=== PATIENT | male | born 1960 | race Caucasian/White ===

== ENCOUNTER 2018-11-20 12:01 | Emergency (ER) | payer BC ==
[2018-11-20] MEDS ORDERED: HYDROmorphone 2 MG/ML Syringe IVPUSH ONE (12:10)
[2018-11-20] MEDS ORDERED: Ondansetron 4 MG/2 ML SDV IVPUSH ONE (12:10)
--- NOTE | 2018-11-20 12:10 | EDM.PDOC ---
ED HPI GENERAL MEDICAL PROBLEM - General Chief Complaint: Trauma Stated Complaint: FALL Time Seen by Provider: 11/20/18 12:19 Source of Information: Reports: Patient, EMS History Limitations: Reports: No Limitations - History of Present Illness INITIAL COMMENTS - FREE TEXT/NARRATIVE: HISTORY AND PHYSICAL: Trauma Alert was called on this patient prior to Arrival. Dr Chavarria was directly involved in this patient's care. History of present illness: Patient is a 57-year-old male who presents to the emergency room after a traumatic injury. While at work he was climbing up scaffolding and there was an incline resulting in him slipping and falling approx 12-14 feet on to the ground. He did hit his head without loss of consciousness. Abrasion noted to posterior left head. He is currently complaining of right lower extremity pain. EMS currently has him in traction for an obvious deformity of the right femur. He denies any chest pain, shortness of breath, cough. Denies any abdominal pain , nausea, vomiting, diarrhea, constipation or dysuria. Her to the mechanical fall he had felt well and had no complaints or symptoms at that time. He denies any change in vision, amnesia, numbness/tingling to distal extremities or urinary/fecal incontinence. Patient's only previous medical history is an essential tremor which she takes propranolol routinely. Review of systems: As per history of present illness and below otherwise all systems reviewed and negative. Past medical history: As per history of present illness and as reviewed below otherwise noncontributory. Surgical history: As per history of present illness and as reviewed below otherwise noncontributory. Social history: See social history for further information Family history: As per history of present illness and as reviewed below otherwise noncontributory. Physical exam: General: Well-developed and well-nourished 57-year-old male. Alert and oriented. Nontoxic appearing and mildly in distress with movement. HEENT: Small hematoma with laceration/abrasion to the left posterior scalp, otherwise nontender to palpation, normocephalic, pupils equal and reactive bilaterally, negative for conjunctival pallor or scleral icterus, mucous membranes moist, no oral lacerations noted, TMs normal bilaterally, throat clear , neck supple, nontender, trachea midline. No drooling or trismus noted. No meningeal signs. No hot potato voice noted. Lungs: Clear to auscultation, breath sounds equal bilaterally, chest nontender. Heart: S1S2, regular rate and rhythm without overt murmur Abdomen: Soft, nondistended, nontender. Negative for masses or hepatosplenomegaly. Negative for costovertebral tenderness. Pelvis: Stable nontender. Genitourinary: Deferred. Rectal: Good rectal tone. Skin: See HEENT. Otherwise skin is intact, warm, dry. No lesions or rashes noted. Extremities: Obvious "U" shaped deformity to the right femur. No open skin to the mentioned area. He is currently in traction. He has good sensation to the lower extremity. Strong pedal and pretibial pulse palpable. Cap refill less than 3 seconds. He is negative for cords or calf pain. Neurovascular unremarkable. C-spine/Back: No pinpoint vertebral tenderness upon palpation. No crepitus, step -offs or obvious deformities. He has good sensation to the lower extremities. Denies any urinary or fecal incontinence. Neuro: Awake, alert, oriented. Cranial nerves II through XII unremarkable. Cerebellum unremarkable. Motor and sensory unremarkable throughout. Exam nonfocal. Notes: Patient is alert and oriented. Head to toe assessment completed. Dr Aponte at [facility] was consulted on this patient. He is willing to take this patient for admission. Patient will go via ground EMS. Our ambulance service will be about 45 minutes before able to transfer. During that time a little obtain a head CT and cervical spine CT without transfer. Lab results are pending. Chest x-ray shows no acute cardiopulmonary process with osseous structures unremarkable. Pelvis and right femur imaging shows displaced overlapping mid right femur fracture identified several centimeters distal to the femoral neck component of the right hip hardware with out suprapatellar joint effusion. Pelvis and right femur imaging also shows a displaced mid right femur fracture. Head CT shows no acute findings. Patient continues to have strong pedal and pretibial pulses. He is aware that he is being transferred to [facility] in [place]. Vital signs remain stable. He denies any further questions or concerns at this time. Diagnostics: CBC, CMP, INR, EKG, one view chest, pelvis, right femur, head CT, cervical spine CT Therapeutics: NS, Tdap, Dilaudid, Zofran Impression: Head injury Displaced mid femur fracture, right Plan: 1. Transfer to [facility] via ground EMS. Definitive disposition and diagnosis as appropriate pending reevaluation and review of above. Onset: Today Duration: Minutes: Location: Reports: Lower Extremity, Left right upper leg Pain Score (Numeric/FACES): 7 - Related Data Allergies Allergy/AdvReac Type Severity Reaction Status Date / Time No Known Allergies Allergy Verified 11/20/18 12:22 Review of Systems - Review of Systems Review Of Systems: ROS reveals no pertinent complaints other than HPI. ED EXAM, GENERAL - Physical Exam Exam: See Below (See dictation) Course - Vital Signs Last Recorded V/S: Last Vital Signs Temp 99.2 F 11/20/18 12:01 Pulse 98 11/20/18 12:01 Resp 18 11/20/18 12:01 BP 160/97 H 11/20/18 12:01 Pulse Ox 95 11/20/18 12:01 - Orders/Labs/Meds Orders: Active Orders 24 hr Category Date Time Status EKG Documentation Completion [RC] STAT Care 11/20/18 12:11 Active Vaccines to be Administered [RC] PER UNIT ROUTINE Care 11/20/18 12:18 Active Labs: Laboratory Tests 11/20/18 11/20/18 11/20/18 Range/Units 12:09 12:09 12:09 WBC 16.57 H (4.0-11.0) K/uL RBC 4.76 (4.50-5.90) M/uL Hgb 14.6 (13.0-17.0) g/dL Hct 42.5 (38.0-50.0) % MCV 89.3 (80.0-98.0) fL MCH 30.7 (27.0-32.0) pg MCHC 34.4 (31.0-37.0) g/dL RDW Std Deviation 41.4 (28.0-62.0) fl RDW Coeff of Jamal 13 (11.0-15.0) % Plt Count 289 (150-400) K/uL MPV 10.20 (7.40-12.00) fL Neut % (Auto) 82.4 H (48.0-80.0) % Lymph % (Auto) 10.5 L (16.0-40.0) % Nash % (Auto) 5.7 (0.0-15.0) % Eos % (Auto) 1.3 (0.0-7.0) % Baso % (Auto) 0.1 (0.0-1.5) % Neut # (Auto) 13.7 H (1.4-5.7) K/uL Lymph # (Auto) 1.7 (0.6-2.4) K/uL Nash # (Auto) 0.9 H (0.0-0.8) K/uL Eos # (Auto) 0.2 (0.0-0.7) K/uL Baso # (Auto) 0.0 (0.0-0.1) K/uL Nucleated RBC % 0.0 /100WBC Nucleated RBCs # 0 K/uL INR 1.04 Sodium 136 (136-148) mmol/L Potassium 3.9 (3.5-5.1) mmol/L Chloride 102 (98-107) mmol/L Carbon Dioxide 22.8 (21.0-32.0) mmol/L BUN 15 (7.0-18.0) mg/dL Creatinine 1.0 (0.8-1.3) mg/dL Est Cr Clr Drug Dosing 93.22 mL/min Estimated GFR (MDRD) > 60.0 ml/min Glucose 143 H (74-106) mg/dL Calcium 8.6 (8.5-10.1) mg/dL Total Bilirubin 0.2 (0.2-1.0) mg/dL AST 23 (15-37) IU/L ALT 39 (14-63) IU/L Alkaline Phosphatase 55 (46-116) U/L Total Protein 7.4 (6.4-8.2) g/dL Albumin 3.5 (3.4-5.0) g/dL Globulin 3.9 (2.6-4.0) g/dL Albumin/Globulin Ratio 0.9 (0.9-1.6) Meds: Medications Discontinued Medications Generic Name Dose Route Start Last Admin Trade Name Freq PRN Reason Stop Dose Admin Diphtheria/Tetanus/Acell Pertussis 0.5 ml 11/20/18 12:18 11/20/18 13:27 Adacel IM 11/20/18 12:19 0.5 ml .ONCE ONE Administration Hydromorphone HCl 1 mg 11/20/18 12:10 11/20/18 12:18 Dilaudid IVPUSH 11/20/18 12:11 1 mg ONETIME ONE Administration Hydromorphone HCl 1 mg 11/20/18 12:52 11/20/18 13:27 Dilaudid IVPUSH 11/20/18 12:53 1 mg ONETIME ONE Administration Ondansetron HCl 4 mg 11/20/18 12:10 11/20/18 12:18 Zofran IVPUSH 11/20/18 12:11 4 mg ONETIME ONE Administration Departure - Departure Time of Disposition: 14:39 Disposition: DC/Tfer to [facility] 02 Clinical Impression: Femur fracture, right Qualifiers: Encounter type: initial encounter Femur location: shaft Fracture type: closed Fracture alignment: displaced Head injury Qualifiers: Encounter type: initial encounter Qualified Code(s): S09.90XA - Unspecified injury of head, initial encounter - Discharge Information Referrals: PCP,Unknown [Primary Care Provider] - Forms: ED Department Discharge - My Orders Last 24 Hours: My Active Orders 11/20/18 12:11 EKG Documentation Completion [RC] STAT 11/20/18 12:18 Vaccines to be Administered [RC] PER UNIT ROUTINE - Assessment/Plan Last 24 Hours: My Active Orders 11/20/18 12:11 EKG Documentation Completion [RC] STAT 11/20/18 12:18 Vaccines to be Administered [RC] PER UNIT ROUTINE
[2018-11-20] MEDS ORDERED: Diphtheria,Pertussis(Acell),Tetanus Vaccine 0.5 ML Syringe IM ONE (12:18)
[2018-11-20] MEDS ORDERED: HYDROmorphone 1 MG/ML Syringe IVPUSH ONE (12:52)
[2018-11-20 13:05] LABS: CHLORIDE,CL 102 mmol/L (98-107); SODIUM,NA 136 mmol/L (136-148)
--- NOTE | 2018-11-20 13:06 | CR ---
EXAMINATION: Portable chest radiograph. HISTORY: Fall. FINDINGS: The trachea is midline. The cardiomediastinal silhouette is within normal limits. No pulmonary infiltrates, effusions or pneumothorax. The left costophrenic angle is not included. Osseous structures appear unremarkable. IMPRESSION: No acute cardiopulmonary process.
--- NOTE | 2018-11-20 13:11 | CR ---
EXAMINATION: Pelvis and right femur HISTORY: Fall COMPARISON: None TECHNIQUE: AP pelvis and 2 views of the right femur FINDINGS: Bilateral total hip hardware is demonstrated. The SI joints are symmetric. Bone mineralization is normal to mildly osteopenic. There is a displaced overlapping mid right femur fracture identified several centimeters distal to the femoral neck component of the right hip hardware there is no suprapatellar joint effusion. IMPRESSION: 1. Displaced mid right femur fracture.
--- NOTE | 2018-11-20 13:31 | CT ---
EXAMINATION: Non contrast CT head. HISTORY: Pain FINDINGS: No evidence of intra or extra axial hemorrhage, mass, midline shift, hydrocephalus or edema. No hypoattenuation changes in the major vascular territories to suggest acute infarct. No abnormal intracranial calcifications are detected. No evidence of substantial vascular calcifications. Paranasal sinuses and mastoid air cells are well aerated without substantial findings. Small subcutaneous hematoma within the left parietal region. Pituitary fossa appears unremarkable. Orbits and globes are symmetric. Calvarium is intact. No evidence of skull fracture. IMPRESSION: No acute intracranial findings.
--- NOTE | 2018-11-20 13:39 | CT ---
EXAMINATION: CT cervical spine HISTORY: Head injury COMPARISON: None TECHNIQUE: Axial CT imaging obtained through the cervical spine without contrast. FINDINGS: Mild reversal of the normal cervical lordosis, likely positional. Vertebral body heights appear maintained. Mild degenerative endplate changes and uncovertebral hypertrophy within the lower cervical spine. There is no fracture or acute osseous abnormality. Bone mineralization is overall normal. The lung apices are clear. No bulky cervical lymphadenopathy. IMPRESSION: 1. Mild degenerative changes without acute findings.
== END 2018-11-20 13:40 ==
LOC: MW.ED 12:01
DX: S09.90XA Unspecified injury of head, initial encounter (principal); S72.001A Fracture of unspecified part of neck of right femur, initial encounter for closed fracture; M97.01XA Periprosthetic fracture around internal prosthetic right hip joint, initial encounter; W01.0XXA Fall on same level from slipping, tripping and stumbling without subsequent striking against object, initial encounter; Y93.89 Activity, other specified; Y92.89 Other specified places as the place of occurrence of the external cause; Y99.0 Civilian activity done for income or pay
CPT/HCPCS: 36415; 70450; 71045; 72125; 72170; 73552; 80053; 85025; 85610; 90471; 90715; 93005; 96374; 96375; 96376; 99285; G0390; J1170; J2405